=== PATIENT | female | born 1965 | race Caucasian/White ===

== ENCOUNTER 2016-11-27 16:48 | Emergency (ER) | payer BC ==
[2016-11-27 17:26] VITALS: BP 141/68
--- NOTE | 2016-11-27 19:20 | ED ---
Skin Complaint - HPI Summary HPI Summary: 51F presents with tick bite on left campbell on Sunday. She removed it on Sunday. She presents today with some redness around the tick bite area. She denies any fevers or streaking redness. She states she was treated for lyme disease before many years ago and tolerated the doxcycline very well. - History of Current Complaint Chief Complaint: UCSkin Time Seen by Provider: 11/27/16 19:08 Stated Complaint: TICK BITE,RASH Hx Last Menstrual Period: n/a - Allergy/Home Medications Allergies/Adverse Reactions: Allergies Allergy/AdvReac Type Severity Reaction Status Date / Time Penicillins Allergy Unknown Verified 11/27/16 17:26 Reaction Details PMH/Surg Hx/FS Hx/Imm Hx Endocrine/Hematology History: Denies: Hx Diabetes, Hx Thyroid Disease Cardiovascular History: Denies: Hx Hypertension Respiratory History: Denies: Hx Asthma, Hx Chronic Obstructive Pulmonary Disease (COPD) GI History: Denies: Hx Ulcer Infectious Disease History: No Infectious Disease History: Denies: Hx Hepatitis, Hx Human Immunodeficiency Virus (HIV), Traveled Outside the [place] in Last 30 Days - Family History Known Family History: Positive: Cardiac Disease - Social History Alcohol Use: None Substance Use Type: Reports: None Smoking Status (MU): Never Smoked Tobacco Review of Systems Negative: Fever Negative: Chest Pain Negative: Shortness Of Breath Positive: Other - tick bite left campbell All Other Systems Reviewed And Are Negative: Yes Physical Exam Triage Information Reviewed: Yes Vital Signs On Initial Exam: Initial Vitals Temp Pulse Resp BP Pulse Ox 98.0 F 78 16 141/68 100 11/27/16 17:23 11/27/16 17:23 11/27/16 17:23 11/27/16 17:23 11/27/16 17:23 Vital Signs Reviewed: Yes Appearance: Positive: Well-Appearing Skin: Positive: Warm, Dry, Other - small area of erythema to left campbell with no surrounding ring of erythema Head/Face: Positive: Normal Head/Face Inspection Eyes: Positive: Normal, Conjunctiva Clear Respiratory/Lung Sounds: Positive: Clear to Auscultation, Breath Sounds Present Cardiovascular: Positive: Normal, RRR Diagnostics - Vital Signs Vital Signs Temp Pulse Resp BP Pulse Ox 11/27/16 17:23 98.0 F 78 16 141/68 100 - Laboratory Lab Statement: Any lab studies that have been ordered have been reviewed, and results considered in the medical decision making process. Course/Dx - Course Course Of Treatment: 51F presents with tick bite on Sunday that was removed Sunday. tick was engorged at removal. area at bite is red but no surround ring of redness. explained out of range to ppx treat for lyme disease. patient states would like to be treated for lyme disease. explained that presently does not appear to have lyme disease. discussed pros vs cons of treatment and pt decided to treat with doxcycline for 21 days. patient understands and agrees with plan - Differential Diagnoses - Skin Complaint Differential Diagnoses: Contact Dermatitis, Systemic Illness, Tick Born Illness - Diagnoses Provider Diagnoses: Lyme disease Discharge - Discharge Plan Condition: Good Disposition: HOME Prescriptions: DOXYcycline CAP(*) [DOXYcycline 100MG CAP(*)] 100 mg PO BID #[id number] cap Patient Education Materials: Lyme Disease (ED) Referrals: Lakshmi Britt MD [Primary Care Provider] - Additional Instructions: Take antibiotic twice a day for 21 days Take antibiotic with food Follow up with primary Return to ED if develop fever, neck stiffness, or any new or worsening symptoms
--- NOTE | 2016-11-28 15:37 | UC ---
Progress - Progress Note Progress Note: Reached out to patient to follow up on recent visit---Left message for patient-- Jamia Nielsen
== END 2016-11-27 20:01 | disposition home or self-care (01) ==
LOC: UCEAST 16:48
DX: A69.20 Lyme disease, unspecified (principal); W57.XXXA Bitten or stung by nonvenomous insect and other nonvenomous arthropods, initial encounter; Y93.9 Activity, unspecified; Y92.9 Unspecified place or not applicable; Y99.9 Unspecified external cause status
CPT/HCPCS: 99212; G0463

== ENCOUNTER 2019-06-01 11:15 | Emergency (ER) | payer BC ==
[2019-06-01 11:58] VITALS: BP 151/75
--- NOTE | 2019-06-01 12:02 | UC ---
Knee Pain HPI - HPI Summary HPI Summary: 53 year old female with no pmh presents with lateral left knee pain x 3-4 days. no prior injuries, surgeries. patient denies trauma/ injury. she does sit with her left knee bent under her while she works on her laptop. Pain is a constant ache, with some radiating into posterior thigh. no difficulty with walking, straight leg. no pain with stretching. + pain with bending knee > 90 degrees and rotating inward. NO prior pain. no fever, chills, no other issues. No OCP, no estrogen replacement. 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 - History of Current Complaint Chief Complaint: UCLowerExtremity Stated Complaint: LEG COMPLAINT Time Seen by Provider: 06/01/19 12:02 Hx Obtained From: Patient Hx Last Menstrual Period: n/a ?: No Severity Initially: Mild Severity Currently: Mild Pain Intensity: 2 Pain Scale Used: 0-10 Numeric Character: Throbbing Aggravating Factor(s): Movement Alleviating Factor(s): Rest, Position Associated Signs And Symptoms: Negative: Swelling, Bruising, Fever, Weakness, Numbness, Tingling Able to Bear Weight: Yes - Allergies/Home Medications Allergies/Adverse Reactions: Allergies Allergy/AdvReac Type Severity Reaction Status Date / Time Penicillins Allergy Unknown Verified 06/01/19 11:58 Reaction Details Home Medications: Home Medications Ibuprofen TAB* [Advil TAB*] 400 mg PO Q6H PRN 06/01/19 [History Confirmed ] PMH/Surg Hx/FS Hx/Imm Hx Previously Healthy: Yes - Surgical History Surgical History: None - Family History Known Family History: Positive: Cardiac Disease, Non-Contributory - Social History Occupation: Employed Full-time Alcohol Use: None Substance Use Type: None Smoking Status (MU): Never Smoked Tobacco Review of Systems All Other Systems Reviewed And Are Negative: Yes Constitutional: Negative: Fever, Chills, Fatigue Skin: Negative: Rash, Bruising Respiratory: Negative: Shortness Of Breath, Cough Cardiovascular: Negative: Palpitations, Chest Pain Motor: Negative: Decreased ROM, Weakness Musculoskeletal: Positive: Myalgia. Negative: Arthralgia, Calf Tenderness, Decreased ROM, Edema Neurological: Negative: Headache, Weakness Psychological: Positive: Anxious Is Patient Immunocompromised?: No Physical Exam Triage Information Reviewed: Yes Appearance: Well-Appearing, No Pain Distress, Well-Nourished Vital Signs: Initial Vital Signs Temp 98.1 F 06/01/19 11:52 Pulse 93 06/01/19 11:52 Resp 16 06/01/19 11:52 BP 151/75 06/01/19 11:52 Pulse Ox 98 06/01/19 11:52 Vital Signs Reviewed: Yes Eyes: Positive: Conjunctiva Clear ENT: Positive: Hearing grossly normal Respiratory: Positive: No respiratory distress, No accessory muscle use. Negative: Respiratory distress Musculoskeletal: Positive: Other: - Left knee- ROM 0-125 without pain. + TTP over lateral joint line, increased posteriorly. trace effusion. neg grind, neg patellar apprehension, neg homans, no pain with DF/PF, pulses normal, mild + nieves laterally. no instability/ laxity, no LCL, MCL pain/ tenderness. no erythema, bruising noted, no warmth, no swelling over calf/ thigh, n ocalf/ thigh tenderness. Neurological: Positive: Alert, Muscle Tone Normal, Other: - PT pulses 2+ Psychological Exam: Normal Skin Exam: Normal Skin: Negative: Rashes, Breakdown, Significant Lesion(s) Knee Pain Course/Dx - Course Course Of Treatment: Discussed we could not formally dx a blood clot due to no having US available, however exam was most consistent with meniscal injury. Probably Meniscal Injury - Follow up with orthopedics within 5-7 days if no improvement for other treatment modalities. - Naproxen every 12 hours OR Advil 400mg every 6 hours for 2-3 days to decreased swelling/ irritation/ pain - Gentle range of motion exercises only, avoid lots of squats, steps, bending knee forcefully. - Brace as needed for comfort - Ice several times a day to decrease swelling. - Differential Dx/Diagnosis Differential Diagnosis/HQI/PQRI: Infection, Patellofemoral Syndrome, Sprain, Strain Provider Diagnosis: Left knee injury Discharge ED - Sign-Out/Discharge Documenting (check all that apply): Patient Departure All imaging exams completed and their final reports reviewed: No Studies - Discharge Plan Condition: Good Disposition: HOME Patient Education Materials: Knee Pain (ED), Meniscus Tear (ED) Referrals: Lakshmi Britt MD [Primary Care Provider] - Lindy Hill MD [Medical Doctor] - Additional Instructions: Probably Meniscal Injury - Follow up with orthopedics within 5-7 days if no improvement for other treatment modalities. - Naproxen every 12 hours OR Advil 400mg every 6 hours for 2-3 days to decreased swelling/ irritation/ pain - Gentle range of motion exercises only, avoid lots of squats, steps, bending knee forcefully. - Brace as needed for comfort - Ice several times a day to decrease swelling. - Billing Disposition and Condition Condition: GOOD Disposition: Home
== END 2019-06-01 12:59 | disposition home or self-care (01) ==
LOC: UCEAST 11:15
DX: S89.92XA Unspecified injury of left lower leg, initial encounter (principal); Z88.0 Allergy status to penicillin; X58.XXXA Exposure to other specified factors, initial encounter; Y92.9 Unspecified place or not applicable
CPT/HCPCS: 99211; G0463